=== PATIENT | female | born 1950 | race Caucasian/White ===

== ENCOUNTER → 2017-07-06 | Outpatient (CLI) | payer MEDICARE, OTHER ==
[2015-05-23 09:55] VITALS: BMI 37.8
[~2017-07-06] MED LIST: ATOR10TA65 PO; ATOR40TA69 PO; CHOL100039; CICL34.6 TP; DICL100G39; DIPH-740 PO; ESOM40CA42 PO; GABA-549 PO; GLUC100013 PO; LEVO150T78 PO; METF-410 PO; MULT-1381 PO; OMEG-96 PO; OXYC-869 PO; PNEI IJ; PRED20TA6 PO; TRI05T TP; TRIA15CR40 TP; TRIORA DT; [UNRECOGNIZED DRUG - CODE] GT
[2017-07-06 16:04] LABS: PLATELET COUNT, AUTOMATED 230 K/uL (150-450)
[2017-07-06 16:13] LABS: LDL CHOLESTEROL 64 mg/dl
--- NOTE | 2017-07-06 16:15 | EKG ---
FACILITY: [facility] PATIENT NAME: ADILENE YANCEY : [id number] MR: [id number] V: [id number] EXAM DATE: ORDERING PHYSICIAN: KRISTOFER GILLESPIE TECHNOLOGIST: MORRO GRAVES Test Reason : CHEST PAIN Blood Pressure : / mmHG Vent. Rate : 080 BPM Atrial Rate : 080 BPM P-R Int : 152 ms QRS Dur : 084 ms QT Int : 392 ms P-R-T Axes : 069 072 069 degrees QTc Int : 452 ms Normal sinus rhythm Normal ECG When compared with ECG of 13-AUG-2016 09:29, No significant change was found Confirmed by KRISTOFER GILLESPIE ([id number]) on 07/07/2017 8:41:35 AM Referred By: Confirmed By:KRISTOFER GILLESPIE
== END ==
LOC: LAB 15:40
PROVIDERS: ATTEND Emergency Medicine
DX: E11.9 Type 2 diabetes mellitus without complications (principal); E03.9 Hypothyroidism, unspecified; R07.9 Chest pain, unspecified
CPT/HCPCS: 36415; 82040; 82247; 82310; 82374; 82435; 82465; 82565; 82947; 83036; 83718; 84075; 84132; 84155; 84295; 84443; 84450; 84460; 84478; 84484; 84520; 85025

== ENCOUNTER → 2017-08-06 | Outpatient (CLI) | payer MEDICARE, OTHER ==
[2015-05-23 09:55] VITALS: BMI 37.8
[~2017-08-06] MED LIST changes: +LISI-362 PO
[2017-08-06 11:01] LABS: PLATELET COUNT, AUTOMATED 245 K/uL (150-450)
[2017-08-06 11:33] LABS: LDL CHOLESTEROL 44 mg/dl
== END ==
LOC: LAB 10:43
PROVIDERS: ATTEND Emergency Medicine
DX: E03.9 Hypothyroidism, unspecified (principal); E11.9 Type 2 diabetes mellitus without complications; E78.5 Hyperlipidemia, unspecified; E55.9 Vitamin D deficiency, unspecified
CPT/HCPCS: 36415; 82040; 82247; 82306; 82310; 82374; 82435; 82465; 82565; 82947; 83036; 83718; 84075; 84132; 84155; 84295; 84443; 84450; 84460; 84478; 84520; 85025

== ENCOUNTER → 2017-12-21 | Outpatient (CLI) | payer MEDICARE, OTHER ==
[2015-05-23 09:55] VITALS: BMI 37.8
[~2017-12-21] MED LIST changes: +ASPI-1471 PO; +ATOR20TA65 PO; -METF-410 PO; +METF-411 PO; +RANI-366 PO
[2017-12-21 15:16] LABS: PLATELET COUNT, AUTOMATED 229 K/uL (150-450)
--- NOTE | 2017-12-21 15:23 | EKG ---
FACILITY: [facility] PATIENT NAME: ADILENE YANCEY : [id number] MR: [id number] V: [id number] EXAM DATE: ORDERING PHYSICIAN: KRISTOFER GILLESPIE TECHNOLOGIST: MORRO GRAVES Test Reason : TACHYCARDIA Blood Pressure : / mmHG Vent. Rate : 099 BPM Atrial Rate : 099 BPM P-R Int : 150 ms QRS Dur : 080 ms QT Int : 356 ms P-R-T Axes : 070 072 075 degrees QTc Int : 456 ms Normal sinus rhythm Normal ECG No previous ECGs available Confirmed by KRISTOFER GILLESPIE ([id number]) on 12/23/2017 3:03:51 PM Referred By: Confirmed By:KRISTOFER GILLESPIE
== END ==
LOC: RESP 14:50
PROVIDERS: ATTEND Emergency Medicine
DX: R00.0 Tachycardia, unspecified (principal); E83.52 Hypercalcemia; E11.9 Type 2 diabetes mellitus without complications
CPT/HCPCS: 36415; 82040; 82247; 82310; 82374; 82435; 82565; 82947; 83036; 83970; 84075; 84132; 84155; 84295; 84443; 84450; 84460; 84484; 84520; 85025; 85379

== ENCOUNTER → 2017-12-23 | Outpatient (CLI) | payer MEDICARE, OTHER ==
[2015-05-23 09:55] VITALS: BMI 37.8
--- NOTE | 2017-12-23 11:34 | RADIOLOGY IMAGING REPORT ---
FACILITY: [facility] [place] PATIENT NAME: Enid Nj : 1950 MR: [id number] V: [id number] EXAM DATE: ORDERING PHYSICIAN: KRISTOFER GILLESPIE TECHNOLOGIST: Location: [facility] [place] Patient: Enid Nj : 1950 Visit/Account:[id number] Date of Sevice: 12/23/2017 CHEST PA AND LAT HISTORY: Tachycardia. COMPARISON: Chest x-ray August. FINDINGS: Cardiomediastinal contours: The heart size is normal. Lungs and pleura: There is no finding of an infiltrate, lymphadenopathy or pleural effusion. Bones/soft tissues: There are discogenic degenerative changes throughout the resident spine. IMPRESSION: No active disease in the chest. Report Dictated By: Galen Olivarez MD at 12/23/2017 11:17 AM Report E-Signed By: Galen Olivarez MD at 12/23/2017 11:31 AM WSN:[email or web address]
--- NOTE | 2017-12-23 11:38 | RADIOLOGY IMAGING REPORT ---
FACILITY: [facility] PATIENT NAME: Enid Nj : 1950 MR: [id number] V: [id number] EXAM DATE: ORDERING PHYSICIAN: KRISTOFER GILLESPIE TECHNOLOGIST: Location: [facility] - [place] Patient: Enid Nj : 1950 Visit/Account:[id number] Date of Sevice: 12/23/2017 FOOT 3 VIEW LEFT History: Left foot pain. Comparison study: None. Findings: There is no fracture involving the left foot. There is a mild hallux valgus and there are mild degenerative changes at the left first MTP joint. There are enthesopathic findings at the site of attachment of the Achilles tendon and plantar aponeur osis upon the calcaneus. Well-corticated bony densities at the base of the left fifth metatarsal are of uncertain significance or etiology. IMPRESSION: 1. No fracture seen. 2. Minimal hallux valgus with mild degenerative changes at the first MTP joint. Report Dictated By: Galen Olivarez MD at 12/23/2017 11:33 AM Report E-Signed By: Galen Olivarez MD at 12/23/2017 11:35 AM WSN:[email or web address]
== END ==
LOC: RAD 10:14
PROVIDERS: ATTEND Emergency Medicine
DX: M20.12 Hallux valgus (acquired), left foot (principal)
CPT/HCPCS: 71046

== ENCOUNTER → 2017-12-24 | Outpatient (CLI) | payer MEDICARE, OTHER ==
[2015-05-23 09:55] VITALS: BMI 37.8
--- NOTE | 2017-12-28 06:33 | RT HOLTER TEST ---
FACILITY: [facility] PATIENT NAME: ADILENE YANCEY : [id number] MR: [id number] V: [id number] EXAM DATE: ORDERING PHYSICIAN: KRISTOFER GILLESPIE TECHNOLOGIST: Alfreda Hook-up date: 2017-12-24 11:15:00 Duration: 25:42:00 Test Indications: TACHYCARDIA Medications: Levothyroxine Atorvastatin Metformin Gabapentin Lisinopril Baby Asprin 437035 QRS complexes 39 Ventricular ectopics which represent <1 % of total QRS comp. 11 Supraventricular ectopics which represent <1 % of total QRS comp. * Paced QRS complexes which represent % of total QRS comp. VENTRICULAR ECTOPY 39 Isolated 0 Bigeminal Cycles 0 Couplets 0 Runs 0 Beats in Runs * Beats LONGEST at * BPM at :: -- * Beats FASTEST at * BPM at :: -- SUPRAVENTRICULAR ECTOPY 11 Isolated 0 Couplets 0 Runs 0 Beats in Runs * Beats LONGEST at * BPM at :: -- * Beats FASTEST at * BPM at :: -- HEART RATES 58 MIN at 06:03:26 2017-12-25 78 AVG 120 MAX at 11:12:31 2017-12-25 LONGEST RR 1.400 secs at 02:40:27 2017-12-25 S-T LEVELS Channel 1 -12.800 mm MIN at 11:15:00 2017-12-2412.800 mm MAX at 11:15:00 2017-12-24 Channel 2 -12.800 mm MIN at 11:15:00 2017-12-2412.800 mm MAX at 11:15:00 2017-12-24 Channel 3 -12.800 mm MIN at 11:15:00 2017-12-2412.800 mm MAX at 11:15:00 2017-12-24 Confirmed by HOLA SUÁREZ ([id number]) on 12/28/2017 6:32:37 AM Referred By: Overread By: HOLA SUÁREZ
== END ==
LOC: RESP 02:45
PROVIDERS: ATTEND Emergency Medicine
DX: R00.0 Tachycardia, unspecified (principal)
CPT/HCPCS: 93225; 93226

== ENCOUNTER → 2018-01-18 | Outpatient (CLI) | payer MEDICARE, OTHER ==
[2015-05-23 09:55] VITALS: BMI 37.8
[~2018-01-18] MED LIST changes: +REGADENOSON 0.4 MG/5 ML SYR ONE
--- NOTE | 2018-01-18 14:59 | RADIOLOGY IMAGING REPORT ---
FACILITY: [facility] PATIENT NAME: Eind Nj : 1950 MR: [id number] V: [id number] EXAM DATE: ORDERING PHYSICIAN: KRISTOFER GILLESPIE TECHNOLOGIST: Location: [facility] Patient: Enid Nj : 1950 Visit/Account:[id number] Date of Sevice: 01/18/2018 EXAMINATION: Single isotope SPECT imaging with regadenoson infusion and gated SPECT imaging. DATE OF EXAMINATION: January 18, 2018. DATE OF INTERPRETATION: January 18, 2018. REQUESTING PHYSICIAN: KRISTOFER GILLESPIE. INDICATION: The patient is a 67-year-old female evaluated for chest pain. PROCEDURE: After informed consent the patient received an intravenous injection of 11.6 mCi of Tc-99 m sestamibi followed at an appropriate time interval by rest imaging. The patient then subsequently received an intravenous infusion of 0.4 mg of regadenoson per protocol without complication. Resting heart rate was 66 bpm with a peak heart rate of 91 bpm. Blood pressure at rest was 125 / 74 and fol lowing infusion was 129 / 73. Baseline EKG demonstrates sinus rhythm. There were no diagnostic EKG changes of ischemia following infusion. Symptoms were nonspecific. The patient then received an int ravenous injection of 30.2 mCi of Tc-99m sestamibi followed by stress imaging. RAW DATA: Examination of the summed raw data revealed a good quality study. MYOCARDIAL PERFUSION: The tomographic images demonstrate normal perfusion rest and stress. No areas of infarct or ischemia identified.. GATED IMAGES: The gated images demonstrate normal regional wall motion and thickening, LVEF 70%. IMPRESSION: 1. Nondiagnostic Lexiscan stress ECG 2. Normal myocardial perfusion scan. 3. Normal LV systolic function; LVEF 70%. Report Dictated By: Luis Mata MD at 01/18/2018 2:53 PM Report E-Signed By: Luis Mata MD at 01/18/2018 2:55 PM WSN:[id number]
== END ==
LOC: RESP 02:02
PROVIDERS: ATTEND Emergency Medicine
DX: R07.89 Other chest pain (principal)
CPT/HCPCS: 78452; 93017; A9500; J2785

== ENCOUNTER → 2018-08-15 | Outpatient (CLI) | payer MEDICARE, OTHER ==
[2015-05-23 09:55] VITALS: BMI 37.8
[~2018-08-15] MED LIST changes: +CHOL200038 PO; +CHOL500045 PO; +ESC10 PO; +FLU180SY11 IM; +LISI5TAB25 PO; -METF-411 PO; +METF-450 PO; -REGADENOSON 0.4 MG/5 ML SYR ONE
[2018-08-15 08:21] LABS: PLATELET COUNT, AUTOMATED 262 K/uL (150-450)
[2018-08-15 08:46] LABS: LDL CHOLESTEROL 61 mg/dl
== END ==
LOC: LAB 08:04
PROVIDERS: ATTEND Emergency Medicine
DX: E55.9 Vitamin D deficiency, unspecified (principal); G47.33 Obstructive sleep apnea (adult) (pediatric); E03.9 Hypothyroidism, unspecified; E11.9 Type 2 diabetes mellitus without complications; E78.5 Hyperlipidemia, unspecified
CPT/HCPCS: 36415; 82040; 82247; 82306; 82310; 82374; 82435; 82465; 82565; 82947; 83036; 83718; 84075; 84132; 84155; 84295; 84443; 84450; 84460; 84478; 84520; 85025